=== PATIENT | female | born 1945 | race Caucasian/White ===

== ENCOUNTER 2017-03-20 12:22 | Outpatient (CLI) | payer MEDICARE, OTHER | END 2017-03-20 12:23 | disposition home or self-care (01) | LOC: BICMAMMO 12:22 | PROVIDERS: ATTEND Internal Medicine | DX: Z12.31 Encounter for screening mammogram for malignant neoplasm of breast (principal); Z80.3 Family history of malignant neoplasm of breast | CPT/HCPCS: 77063; 77067 ==

== ENCOUNTER 2018-12-11 10:57 | Outpatient (CLI) | payer MEDICARE, OTHER ==
--- NOTE | 2018-12-11 13:08 | RAD ---
PA AND LATERAL CHEST: HISTORY: Dyspnea. COMPARISON: 11/26/2011 FINDINGS: Heart size is within normal limits. There are atherosclerotic changes of the aorta. Chronic lung dong ges are seen with some flattening to the hemidiaphragms. The bones appear slightly demineralized. IMPRESSION: Mild chronic lung change. Stable chest. POS: [facility]
== END 2018-12-11 10:58 | disposition home or self-care (01) ==
LOC: RAD 10:57
PROVIDERS: ATTEND Internal Medicine
DX: R06.00 Dyspnea, unspecified (principal)
CPT/HCPCS: 71046